=== PATIENT | female | born 1970 | race Caucasian/White ===

== ENCOUNTER → 2016-08-03 | Outpatient (REF) | payer BC ==
[2016-08-03 11:36] LABS: MEAN CORPUSCULAR HEMOGLOBIN 27.3 pg (27.0-33.0); MEAN CORPUSCULAR HGB CONC 34.7 g/dl (32.0-36.5); MEAN CORPUSCULAR VOLUME 78.8 fl (80.0-96.0); RED CELL DISTRIBUTION WIDTH 12.6 % (11.5-14.5); WHITE BLOOD COUNT 6.3 K/mm3 (4.0-10.0)
[2016-08-03 12:05] LABS: ALBUMIN 4.2 GM/DL (3.2-5.2); ALBUMIN/GLOBULIN RATIO 1.08 (1.00-1.93); ALKALINE PHOSPHATASE 69 U/L (45-117); ALT/SGPT 19 U/L (12-78); ANION GAP 8 MEQ/L (8-16); AST/SGOT 12 U/L (15-37); BILIRUBIN,TOTAL 0.4 MG/DL (0.2-1.0); BLOOD UREA NITROGEN 14 MG/DL (7-18); CALCIUM LEVEL 8.9 MG/DL (8.5-10.1); CARBON DIOXIDE LEVEL 26 MEQ/L (21-32); CHLORIDE LEVEL 103 MEQ/L (98-107); CHOLESTEROL LEVEL 224 MG/DL (<200); CREATININE FOR GFR 0.94 MG/DL (0.55-1.02); GLOMERULAR FILTRATION RATE > 60.0 (>58); GLUCOSE, FASTING 126 MG/DL (70-105); POTASSIUM SERUM 4.7 MEQ/L (3.5-5.1); SODIUM LEVEL 137 MEQ/L (136-145); TOTAL PROTEIN 8.1 GM/DL (6.4-8.2); TRIGLYCERIDES LEVEL 196 MG/DL (<150)
== END ==
LOC: M SFHCCLAY 07:35
PROVIDERS: ATTEND Nurse Practitioner Family
DX: I10 Essential (primary) hypertension (principal); E11.9 Type 2 diabetes mellitus without complications; E78.4 Other hyperlipidemia; E55.9 Vitamin D deficiency, unspecified

== ENCOUNTER → 2016-11-23 | Outpatient (REF) | payer BC ==
[2016-11-23 12:12] LABS: ALBUMIN 4.2 GM/DL (3.2-5.2); ALBUMIN/GLOBULIN RATIO 1.24 (1.00-1.93); ALKALINE PHOSPHATASE 58 U/L (45-117); ALT/SGPT 23 U/L (12-78); AST/SGOT 16 U/L (15-37); BILIRUBIN,DIRECT < 0.1 MG/DL (0.0-0.2); BILIRUBIN,TOTAL 0.2 MG/DL (0.2-1.0); CHOLESTEROL LEVEL 177 MG/DL (<200); TOTAL PROTEIN 7.6 GM/DL (6.4-8.2); TRIGLYCERIDES LEVEL 120 MG/DL (<150)
== END ==
LOC: M SFHCCLAY 07:21
PROVIDERS: ATTEND Nurse Practitioner Family
DX: E11.9 Type 2 diabetes mellitus without complications (principal); E78.4 Other hyperlipidemia; E55.9 Vitamin D deficiency, unspecified

== ENCOUNTER → 2017-04-19 | Outpatient (REF) | payer BC | LOC: M SFHCCLAY 07:18 | PROVIDERS: ATTEND Nurse Practitioner Family | DX: E11.9 Type 2 diabetes mellitus without complications (principal); E78.4 Other hyperlipidemia; E55.9 Vitamin D deficiency, unspecified ==

== ENCOUNTER → 2017-08-09 | Outpatient (REF) | payer BC ==
[2017-08-09 11:37] LABS: HEMATOCRIT 42.6 % (36.0-47.0); HEMOGLOBIN 13.9 g/dl (12.0-16.0); MEAN CORPUSCULAR HEMOGLOBIN 26.1 pg (27.0-33.0); MEAN CORPUSCULAR HGB CONC 32.6 g/dl (32.0-36.5); MEAN CORPUSCULAR VOLUME 80.1 fl (80.0-96.0); PLATELET COUNT, AUTOMATED 291 10^3/uL (150-450); RED BLOOD COUNT 5.32 10^6/uL (4.00-5.40); RED CELL DISTRIBUTION WIDTH 12.8 % (11.5-14.5); WHITE BLOOD COUNT 6.3 10^3/uL (4.0-10.0)
[2017-08-09 11:56] LABS: ESTIMATED AVERAGE GLUCOSE 154 MG/DL (60-110)
[2017-08-09 12:14] LABS: ALBUMIN 4.4 GM/DL (3.2-5.2); ALBUMIN/GLOBULIN RATIO 1.16 (1.00-1.93); ALKALINE PHOSPHATASE 66 U/L (45-117); ALT/SGPT 26 U/L (12-78); ANION GAP 8 MEQ/L (8-16); AST/SGOT 19 U/L (7-37); BILIRUBIN,TOTAL 0.3 MG/DL (0.2-1.0); BLOOD UREA NITROGEN 15 MG/DL (7-18); CALCIUM LEVEL 9.6 MG/DL (8.5-10.1); CARBON DIOXIDE LEVEL 27 MEQ/L (21-32); CHLORIDE LEVEL 103 MEQ/L (98-107); CHOLESTEROL LEVEL 190 MG/DL (<200); CHOLESTEROL RISK RATIO 4.042 (<5); CREATININE FOR GFR 0.88 MG/DL (0.55-1.30); GLOMERULAR FILTRATION RATE > 60.0 (>58); GLUCOSE, FASTING 163 MG/DL (70-100); HDL CHOLESTEROL 47 MG/DL (>40); LDL CHOLESTEROL 108.2 MG/DL (<100); NON-HDL-C 143 MG/DL; POTASSIUM SERUM 4.8 MEQ/L (3.5-5.1); SODIUM LEVEL 138 MEQ/L (136-145); TOTAL PROTEIN 8.2 GM/DL (6.4-8.2); TRIGLYCERIDES LEVEL 174 MG/DL (<150)
[2017-08-09 12:32] LABS: TOTAL 25(OH) VITAMIN D 21.4 NG/ML (30.0-100.0)
[2017-08-09 12:34] LABS: CREATININE, URINE 30.9 MG/DL; MALB URINE SIEMENS 10.7 MG/L; MAU/CREAT RATIO 34.6 MCG/MG (0.0-30.0); TOTAL PROTEIN,RANDOM URINE < 5.0 MG/DL (0.0-12.0)
== END ==
LOC: M SFHCCLAY 07:14
DX: I10 Essential (primary) hypertension (principal); E11.9 Type 2 diabetes mellitus without complications; E78.4 Other hyperlipidemia; E55.9 Vitamin D deficiency, unspecified

== ENCOUNTER → 2017-08-31 | Outpatient (CLI) | payer OTHER, BC | LOC: M LRY 12:57 | DX: M79.645 Pain in left finger(s) (principal) | CPT/HCPCS: 73130 ==

== ENCOUNTER → 2017-12-14 | Outpatient (REF) | payer BC ==
[2017-12-14 11:48] LABS: TOTAL 25(OH) VITAMIN D 30.6 NG/ML (30.0-100.0)
[2017-12-14 12:06] LABS: ESTIMATED AVERAGE GLUCOSE 177 MG/DL (60-110); HEMOGLOBIN A1c 7.8 %
[2017-12-14 12:07] LABS: CHOLESTEROL LEVEL 177 MG/DL (<200); CHOLESTEROL RISK RATIO 4.214 (<5); HDL CHOLESTEROL 42 MG/DL (>40); LDL CHOLESTEROL 105.2 MG/DL (<100); NON-HDL-C 135 MG/DL; TRIGLYCERIDES LEVEL 149 MG/DL (<150)
== END ==
LOC: M SFHCCLAY 07:28
DX: E11.9 Type 2 diabetes mellitus without complications (principal); E78.4 Other hyperlipidemia; E55.9 Vitamin D deficiency, unspecified
CPT/HCPCS: 83036

== ENCOUNTER → 2018-02-14 | Outpatient (REF) | payer BC | LOC: M SFHCCLAY 11:30 | DX: N81.2 Incomplete uterovaginal prolapse (principal) | CPT/HCPCS: 87252 ==

== ENCOUNTER → 2018-04-06 | Outpatient (REF) | payer BC ==
[2018-04-06 12:17] LABS: ALBUMIN 4.1 GM/DL (3.2-5.2); ALBUMIN/GLOBULIN RATIO 1.14 (1.00-1.93); ALKALINE PHOSPHATASE 63 U/L (45-117); ALT/SGPT 23 U/L (12-78); AST/SGOT 14 U/L (7-37); BILIRUBIN,DIRECT < 0.1 MG/DL (0.0-0.2); BILIRUBIN,TOTAL 0.3 MG/DL (0.2-1.0); CHOLESTEROL LEVEL 192 MG/DL (<200); CHOLESTEROL RISK RATIO 5.052 (<5); HDL CHOLESTEROL 38 MG/DL (>40); LDL CHOLESTEROL 103 MG/DL (<100); NON-HDL-C 154 MG/DL; TOTAL PROTEIN 7.7 GM/DL (6.4-8.2); TRIGLYCERIDES LEVEL 257 MG/DL (<150)
[2018-04-06 12:37] LABS: CREATININE, URINE 44.5 MG/DL
[2018-04-06 12:48] LABS: ESTIMATED AVERAGE GLUCOSE 166 MG/DL (60-110); HEMOGLOBIN A1c 7.4 %; MAU/CREAT RATIO 15.7 MCG/MG (0.0-30.0)
[2018-04-06 18:12] LABS: TOTAL 25(OH) VITAMIN D 42.5 NG/ML (30.0-100.0)
== END ==
LOC: M SFHCCLAY 07:24
DX: E11.9 Type 2 diabetes mellitus without complications (principal); E78.4 Other hyperlipidemia; B35.1 Tinea unguium; E55.9 Vitamin D deficiency, unspecified
CPT/HCPCS: 80076

== ENCOUNTER → 2018-08-01 | Outpatient (CLI) | payer BC ==
[~2018-08-01] MED LIST: AMLO5TAB6 PO; CRAN400C PO; CRES20TA PO; LISI40TA PO; METF500T13 PO; VITA100067 PO
--- NOTE | 2018-08-01 21:23 | ECGEPIP ---
Stationary ECG Study [facility] Test Date: 2018-08-01 Pat Name: OCTOBER TAMARA Department: Room: - Gender: F Arranging Funeral Director: NATASHA : 1970 Requested By: RADHA Willams Order Number: [id number] Reading MD: Cal Wright Measurements Intervals [place] Rate: 84 P: 69 WI: 158 QRS: 57 QRSD: 93 T: 44 QT: 355 QTc: 420 Interpretive Statements Normal sinus rhythm Left atrial abnormality Otherwise normal Comparison tracing not on file Electronically Signed On 08-01-2018 21:22:38 EST by Cal Wright
== END ==
LOC: M EKG 17:09
PROVIDERS: ATTEND Anesthesiology
DX: Z01.818 Encounter for other preprocedural examination (principal)

== ENCOUNTER 2018-08-04 07:04 | Day surgery (SDC) | payer BC ==
[2018-08-04] VITALS (7 sets, daily range): BP systolic 129–163; BP diastolic 78–97
[~2018-08-04] VITALS: Ht 170.2 cm; Wt 78.8 kg
[~2018-08-04 07:04] MED LIST changes: +LR 1,000 ML IV ONE
[2018-08-04 07:22] LABS: HEMATOCRIT 40.1 % (36.0-47.0); HEMOGLOBIN 13.6 g/dl (12.0-15.5); MEAN CORPUSCULAR HEMOGLOBIN 26.5 pg (27.0-33.0); MEAN CORPUSCULAR HGB CONC 33.9 g/dl (32.0-36.5); MEAN CORPUSCULAR VOLUME 78.2 fl (80.0-96.0); PLATELET COUNT, AUTOMATED 278 10^3/uL (150-450); RED BLOOD COUNT 5.13 10^6/uL (4.00-5.40); WHITE BLOOD COUNT 7.8 10^3/uL (4.0-10.0)
[2018-08-04] MEDS ORDERED: ONDANSETRON 4MG/2ML VIAL (J2405) As Ordered ONE (07:40)
[2018-08-04] MEDS ORDERED: NEOSTIGMINE 10 MG/10 ML VIAL (J2710) As Ordered ONE (07:40)
[2018-08-04] MEDS ORDERED: LIDOCAINE 2% INJ 100 MG/5 ML SDV (FOR ANES.) As Ordered ONE (07:40)
[2018-08-04] MEDS ORDERED: MIDAZOLAM INJ 2 MG/2 ML VIAL (J2250) As Ordered ONE (07:40)
[2018-08-04] MEDS ORDERED: ROCURONIUM BROMIDE 50 MG/5 ML VIAL As Ordered ONE ×2 (07:40→12:01)
[2018-08-04] MEDS ORDERED: dexameTHASONE 4 MG/ML 1ML VIAL (J1100) As Ordered ONE (07:40)
[2018-08-04] MEDS ORDERED: GLYCOPYRROLATE INJ 0.2 MG/ML 2 ML VIAL As Ordered ONE (07:40)
[2018-08-04] MEDS ORDERED: PROPOFOL 200 MG/20 ML VIAL As Ordered ONE ×2 (07:40→10:42)
[2018-08-04] MEDS ORDERED: fentaNYL 100 MCG/2 ML INJECTION (J3010) As Ordered ONE ×2 (07:41→09:04)
[2018-08-04 07:43] LABS: URINE PREG TEST NEGATIVE (NEGATIVE)
[2018-08-04] MEDS ORDERED: VASOPRESSIN INJ 20 UNITS/ML VIAL As Ordered ONE (08:11)
[2018-08-04] MEDS ORDERED: HYDROmorphone HCL 2 MG/ML 1ML VIAL (J1170) As Ordered ONE (09:21)
[2018-08-04] MEDS ORDERED: LABETALOL HCL 100 MG/20 ML VIAL As Ordered ONE (09:24)
[2018-08-04] MEDS ORDERED: PHENYLephrine HCL 500 MCG/5 ML (100MCG/ML) SYRINGE (J2370) As Ordered ONE ×2 (09:49→11:08)
[2018-08-04] MEDS ORDERED: CALCIUM CHLORIDE 10% 1 GM/10 ML SYR As Ordered ONE (11:21)
[2018-08-04] MEDS ORDERED: MORPHINE 1MG/ML IN 0.9% NACL 100ML IV BAG IV PRN (13:15)
[2018-08-04] MEDS ORDERED: EPIDURAL/PCA KEYS XX PRN (13:15)
[2018-08-04] MEDS ORDERED: LR 1,000 ML IV SCH (13:15)
[2018-08-04] MEDS ORDERED: NALOXONE INJ 0.4 MG/1 ML VIAL (J2310) IV PRN (13:15)
[2018-08-04] MEDS ORDERED: ONDANSETRON 4MG/2ML VIAL (J2405) IV PRN ×2 (13:15)
[2018-08-04] MEDS ORDERED: NALBUPHINE HCL 10 MG/ML AMP (J2300) IV PRN (13:15)
[2018-08-04] MEDS ORDERED: diphenhydrAMINE INJ 50MG/ML VIAL (J1200) IV PRN (13:15)
[2018-08-04] MEDS ORDERED: fentaNYL 100 MCG/2 ML INJECTION (J3010) IV PRN (13:15)
[2018-08-04] MEDS ORDERED: PERCOCET 5MG/325MG TAB PO PRN (13:15)
[2018-08-04] MEDS ORDERED: HumaLOG INSULIN (NovoLOG) PER UNIT SC ONE (13:15)
--- NOTE | 2018-08-04 15:11 | RO ---
DATE OF PROCEDURE: 08/04/2018 PREOPERATIVE DIAGNOSES/INDICATION FOR SURGERY: Symptomatic pelvic prolapse and stress urinary incontinence with urethral mobility and failed pessary. POSTOPERATIVE DIAGNOSES: Symptomatic pelvic prolapse and stress urinary incontinence with urethral mobility and failed pessary. PROCEDURE: Total vaginal hysterectomy with bilateral salpingectomy. The patient retains her ovaries at her request. She had a sacrospinous suspension with an anterior and a posterior repair with perineorrhaphy and a mid urethral sling using Desara and cystourethroscopy. SURGEON: Dr. Nely Torres LEAK INSPECTOR: ANESTHESIA: BRIEF DESCRIPTION OF PROCEDURE AND FINDINGS: Elidia was brought to the operating room where sufficient general anesthesia was induced, and she was prepped, draped, and positioned in the usual sterile fashion. We did not bother placing a weighted because the patient has a prolapse of the cervix at the introitus and so on traction under anesthesia it was external. We emptied the bladder but did not place a Zamora because it would of been in the way of our field of work outside the hymenal ring. We then with the single-tooth tenacula on the anterior and posterior aspect of the cervix we made a circumferential incision around the base of the cervix and sharply and bluntly dissected to isolate the cardinal ligaments, which were clamped, transected and ligated, followed by the uterosacral ligaments, which were completely attenuated, but nevertheless were clamped, transected and ligated, and the posterior reflection of the peritoneum was entered. We continued the dissection anteriorly to protect the bladder and then eventually entered anteriorly and carefully and progressively clamped, transected and ligated the uterine vasculature working laterally as typical until the level of the utero-ovarian ligaments were reached and these two were clamped, transected and ligated. The mesentery of the tube was carefully clamped in a progressive fashion on both sides so that the tubes could be delivered intact, still attached to the uterus. The uterus and the tubes removed. We examined those pedicles, which had been clamped with Marie, cut with SuperCut inside, tied with #0 Vicryl, which was used throughout this portion of the case. We had good hemostasis on all the pedicles and again a fairly marked both rectocele and cystocele, but at this point, it was clear there was also a large enterocele. We did a peritoneal enterocele repair, tried to plicate the uterosacral but they were so attenuated that it was really not tremendously effective, but we were able to close the peritoneum and keep the intestines and enterocele from continuing to protrude into our field of space. We then dissected posteriorly out to the sacrospinous ligament and used the Anchorsure anchors, two of them in the sacrospinous ligament. Each of those carried two #2-0 PDS and when these were placed they were tested. There was some good placement. We used Allis clamps to test the location in the vaginal tissues. We dissected away the vaginal tissues posteriorly away from the rectovaginal septum and anteriorly away from the paravesical tissues in order to come down on the apex of the vagina so we could draw up more of the vagina. 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 So, we eased off on some of the length reduction so as to leave enough room for a more aggressive repair closer to the introitus. Nevertheless, we did do an anterior and posterior repair apically and a lot of the rectocele and a lot of the cystocele were corrected with this. We brought the PDS through and through the vaginal tissues. We then closed the vaginal cuff and then brought each of those pedicles on the PDS down a single thrill. We scoped her and confirmed that we did have normal jets of urine from both ureters and there was no evidence of suture or injury to the bladder. We then finished off tying down the sacrospinous suspension and moved onto the posterior repair. It was not sure at this time whether there would be enough length to do more aggressive anterior repair because we had quite a bit from above and some of it spread somewhat laterally so there is a little bit of a blend there into some lateral defect but there is still partial support laterally that I did not want to disrupt, wanted to try utilize. So we removed a triangle of tissue in the perineum, dissected along the posterior vaginal wall exposing the rectovaginal septum. It had several obvious defects and we did a rectal exam to confirm these were in the septum not in the rectum. We re-supported this area with #2-0 Vicryl repairing each of these areas of defect. The highest portion of the vagina closest to the apex there is still a couple weaker spots but we did not want to cause a reduction in caliber such that she would not have good function and this is definitely one of her priorities as was longevity. We also had a separation, almost complete separation of the rectovaginal septum from the perineal body. So we repaired this as well as. We also did a perineorrhaphy with #0 Vicryl re-supporting this area. We then removed some redundant tissue and closed that posterior defect using #2-0 Vicryl and there was still a little bit of a fold at the cystocele anteriorly. So we did approximately 2 cm more of anterior cystocele repair just to bring a pursestring down on that one area and we could tell scoping her that we had repaired the one little defect we saw persistent after the sacrospinous suspension. So having corrected that as well we went ahead and dissected for the Desara midurethral sling starting approximately 1.5 cm cephalad from the meatus at a natural fold of tissue and dissecting out laterally to make sure that we cleared the sulci of the vagina. We then used the trocar to place the Desara midurethral sling, which was brought out suprapubically. So we worked bottom top in a retropubic sling. We then used a #8 Adrienne and red rubber catheter to make sure we did not over correct this and sized the tissues over that, and then removed the sheathing, trimmed off the vaginal tape and then closed the vaginal defect and then closed the suprapubic defect. I placed a Zamora at the end of the case and the procedure was then ended. Estimated blood loss for the procedure about 150 mL. Fluid replacement was crystalloid. Complications none. CONDITION AND DISPOSITION: Elidia tolerated the procedure well and was recovering in the recovery room in good condition.
[2018-08-04] MEDS ORDERED: NORCO, ANEXSIA 5/325MG TABLET (HYDROcodone/ACETAMINOPHEN) PO PRN (18:00)
[2018-08-04] MEDS ORDERED: PROMETHAZINE INJ 25 MG/ML VIAL (J2550) IV ONE (18:00)
[2018-08-04] MEDS: IBUPROFEN 600 MG TAB PO PRN (18:17)
[2018-08-04] MEDS: LR 1,000 ML IV SCH (18:53)
[2018-08-04] MEDS: LISINOPRIL 40 MG TAB PO SCH (19:03)
[2018-08-04] MEDS: amLODIPine 5 MG TAB PO SCH (19:16)
[2018-08-04] MEDS ORDERED: ROSUVASTATIN 10 MG TAB (CRESTOR) PO SCH (21:00)
[2018-08-05] VITALS: BP 132/68
[2018-08-05] MEDS: LR 1,000 ML IV SCH (00:10)
[2018-08-05] MEDS: IBUPROFEN 600 MG TAB PO PRN ×2 (00:10→06:50)
[2018-08-05 04:00] VITALS: BP 113/68
[2018-08-05] MEDS ORDERED: NORCO, ANEXSIA 5/325MG TABLET (HYDROcodone/ACETAMINOPHEN) PO PRN (06:00)
[2018-08-05 06:38] LABS: HEMATOCRIT 33.5 % (36.0-47.0); MEAN CORPUSCULAR HEMOGLOBIN 26.2 pg (27.0-33.0); MEAN CORPUSCULAR HGB CONC 33.7 g/dl (32.0-36.5); MEAN CORPUSCULAR VOLUME 77.7 fl (80.0-96.0); PLATELET COUNT, AUTOMATED 291 10^3/uL (150-450); RED BLOOD COUNT 4.31 10^6/uL (4.00-5.40)
[2018-08-05 06:45] LABS: HEMOGLOBIN 11.3 g/dl (12.0-15.5)
[2018-08-05 08:00] VITALS: BP 110/68
[2018-08-05] MEDS: LISINOPRIL 40 MG TAB PO SCH (08:24)
[2018-08-05 08:25] VITALS: BP 110/65
[2018-08-05] MEDS: amLODIPine 5 MG TAB PO SCH (08:25)
== END 2018-08-05 09:15 | disposition home or self-care (01) ==
LOC: M SDC 07:04 → M PED 14:00 → M SDC 08-05 09:15
PROVIDERS: ATTEND Obstetrics & Gynecology
DX: N81.9 Female genital prolapse, unspecified (principal); N39.3 Stress incontinence (female) (male); N36.41 Hypermobility of urethra; N72 Inflammatory disease of cervix uteri; I10 Essential (primary) hypertension; E78.00 Pure hypercholesterolemia, unspecified; E11.9 Type 2 diabetes mellitus without complications; Z88.6 Allergy status to analgesic agent; Z79.899 Other long term (current) drug therapy; Z79.84 Long term (current) use of oral hypoglycemic drugs; Z87.891 Personal history of nicotine dependence
CPT/HCPCS: 36415; 57260; 57282; 58262; 84703; 85027; 86850; 86900; 86901; 88307; C1713; C1771; J0690; J1100; J1170; J2250; J2370; J2405; J2710; J3010

== ENCOUNTER → 2018-08-17 | Outpatient (REF) | payer BC ==
[~2018-08-17] MED LIST changes: -LR 1,000 ML IV ONE
[2018-08-17 12:02] LABS: HEMATOCRIT 39.2 % (36.0-47.0); HEMOGLOBIN 12.8 g/dl (12.0-15.5); MEAN CORPUSCULAR HGB CONC 32.7 g/dl (32.0-36.5); MEAN CORPUSCULAR VOLUME 79.5 fl (80.0-96.0); PLATELET COUNT, AUTOMATED 317 10^3/uL (150-450); RED BLOOD COUNT 4.93 10^6/uL (4.00-5.40); WHITE BLOOD COUNT 8.7 10^3/uL (4.0-10.0)
[2018-08-17 12:11] LABS: ALBUMIN 4.1 GM/DL (3.2-5.2); ALT/SGPT 28 U/L (12-78); BILIRUBIN,TOTAL 0.3 MG/DL (0.2-1.0); BLOOD UREA NITROGEN 17 MG/DL (7-18); CALCIUM LEVEL 9.3 MG/DL (8.5-10.1); CARBON DIOXIDE LEVEL 28 MEQ/L (21-32); CHLORIDE LEVEL 99 MEQ/L (98-107); CHOLESTEROL LEVEL 212 MG/DL (<200); CHOLESTEROL RISK RATIO 4.711 (<5); CREATININE FOR GFR 0.88 MG/DL (0.55-1.30); GLOMERULAR FILTRATION RATE > 60.0 (>51); GLUCOSE, FASTING 231 MG/DL (70-100); HDL CHOLESTEROL 45 MG/DL (>40); LDL CHOLESTEROL 115 MG/DL (<100); NON-HDL-C 167 MG/DL; POTASSIUM SERUM 4.8 MEQ/L (3.5-5.1); SODIUM LEVEL 134 MEQ/L (136-145); TOTAL PROTEIN 7.8 GM/DL (6.4-8.2); TRIGLYCERIDES LEVEL 259 MG/DL (<150)
[2018-08-17 12:36] LABS: MAU/CREAT RATIO 98.1 MCG/MG (0.0-30.0)
[2018-08-17 12:42] LABS: HEMOGLOBIN A1c 9.5 %
== END ==
LOC: M SFHCCLAY 07:31
PROVIDERS: ATTEND Nurse Practitioner Family
DX: I10 Essential (primary) hypertension (principal); E11.9 Type 2 diabetes mellitus without complications; E78.49 Other hyperlipidemia; E55.9 Vitamin D deficiency, unspecified

== ENCOUNTER → 2018-09-29 | Outpatient (REF) | payer BC ==
[2018-09-29 12:08] LABS: ALT/SGPT 53 U/L (12-78); BILIRUBIN,DIRECT < 0.1 MG/DL (0.0-0.2); BILIRUBIN,TOTAL 0.3 MG/DL (0.2-1.0); CHOLESTEROL LEVEL 148 MG/DL (<200); CHOLESTEROL RISK RATIO 4.352 (<5); HDL CHOLESTEROL 34 MG/DL (>40); LDL CHOLESTEROL 74 MG/DL (<100); NON-HDL-C 114 MG/DL; TOTAL PROTEIN 7.4 GM/DL (6.4-8.2); TRIGLYCERIDES LEVEL 202 MG/DL (<150)
[2018-09-29 12:12] LABS: HEMOGLOBIN A1c 8.7 %
== END ==
LOC: M SFHCCLAY 07:10
PROVIDERS: ATTEND Nurse Practitioner Family
DX: E11.9 Type 2 diabetes mellitus without complications (principal); E78.49 Other hyperlipidemia

== ENCOUNTER → 2018-12-29 | Outpatient (REF) | payer BC ==
[~2018-12-29] MED LIST changes: -CRES20TA PO; +CRES20TA2 PO
[2018-12-29 12:40] LABS: HEMOGLOBIN A1c 9.4 %
[2018-12-29 12:43] LABS: CHOLESTEROL RISK RATIO 6.121 (<5); THYROID STIMULATING HORMONE 1.25 uIU/ML (0.358-3.740); TOTAL 25(OH) VITAMIN D 32.5 NG/ML (30.0-100.0)
== END ==
LOC: M SFHCCLAY 07:06
PROVIDERS: ATTEND Nurse Practitioner Family
DX: E11.9 Type 2 diabetes mellitus without complications (principal); R53.83 Other fatigue; E55.9 Vitamin D deficiency, unspecified

== ENCOUNTER 2019-02-10 17:13 | Emergency (ER) | payer BC ==
[~2019-02-10] VITALS: Ht 167.6 cm; Wt 76.8 kg
[~2019-02-10 17:13] MED LIST changes: -LIPI10TA PO
[2019-02-10] MEDS ORDERED: LIPI10TA PO (17:20)
[2019-02-10] MEDS ORDERED: ADACEL/BOOSTRIX VACCINE (DIPHTH/PERTUSS/ACELL/TETANUS)0.5ML SYR (90715) IM ONE (18:00)
[2019-02-10] MEDS ORDERED: LIDOCAINE 1% MDV 20ML VIAL IM ONE (18:00)
--- NOTE | 2019-02-10 18:39 | REP ---
Clinical: Trauma. Technique: AP, lateral, bilateral oblique views right second digit . Findings: The osseous structures and joint spaces are intact and normal. There is no evidence for acute fracture or dislocation. Surrounding soft tissues are unremarkable. Laceration. No foreign body. Impression: Laceration noted. No foreign body. No acute fracture or dislocation. Electronically Signed by Christiano Polk MD 02/10/2019 06:31 P
[2019-02-10 19:23] VITALS: BP 154/88
== END 2019-02-10 19:41 | disposition home or self-care (01) ==
LOC: M ED 17:13
DX: S61.210A Laceration without foreign body of right index finger without damage to nail, initial encounter (principal); W27.0XXA Contact with workbench tool, initial encounter; Y92.098 Other place in other non-institutional residence as the place of occurrence of the external cause; E11.9 Type 2 diabetes mellitus without complications; I10 Essential (primary) hypertension; Z88.6 Allergy status to analgesic agent; Z79.899 Other long term (current) drug therapy; Z79.84 Long term (current) use of oral hypoglycemic drugs

== ENCOUNTER → 2019-02-10 | Outpatient (REF) | payer BC ==
[~2019-02-10] MED LIST changes: +LIPI10TA PO
[2019-02-10 12:15] LABS: HEMOGLOBIN A1c 8.9 %
== END ==
LOC: M SFHCCLAY 07:04
PROVIDERS: ATTEND Nurse Practitioner Family
DX: E11.9 Type 2 diabetes mellitus without complications (principal)

== ENCOUNTER → 2019-05-18 | Outpatient (REF) | payer BC ==
[~2019-05-18] MED LIST changes: +LIPI10TA PO
[2019-05-18 12:04] LABS: CHOLESTEROL RISK RATIO 5.536 (<5)
[2019-05-18 12:11] LABS: HEMOGLOBIN A1c 7.4 %
[2019-05-18 12:40] LABS: CREATININE, URINE 55.3 MG/DL; MALB URINE SIEMENS 6.2 MG/L; MAU/CREAT RATIO 11.2 MCG/MG (0.0-30.0)
== END ==
LOC: M SFHCCLAY 06:56
PROVIDERS: ATTEND Nurse Practitioner Family
DX: E11.9 Type 2 diabetes mellitus without complications (principal); E78.49 Other hyperlipidemia

== ENCOUNTER → 2019-08-21 | Outpatient (REF) | payer BC ==
[2019-08-21 12:34] LABS: HEMATOCRIT 44.9 % (36.0-47.0); HEMOGLOBIN 14.2 g/dl (12.0-15.5); MEAN CORPUSCULAR HEMOGLOBIN 25.4 pg (27.0-33.0); MEAN CORPUSCULAR HGB CONC 31.6 g/dl (32.0-36.5); MEAN CORPUSCULAR VOLUME 80.5 fl (80.0-96.0); PLATELET COUNT, AUTOMATED 215 10^3/uL (150-450); RED BLOOD COUNT 5.58 10^6/uL (4.00-5.40); WHITE BLOOD COUNT 5.1 10^3/uL (4.0-10.0)
[2019-08-21 12:42] LABS: ALBUMIN 4.1 GM/DL (3.2-5.2); ALT/SGPT 26 U/L (12-78); BILIRUBIN,TOTAL 0.3 MG/DL (0.2-1.0); BLOOD UREA NITROGEN 18 MG/DL (7-18); CALCIUM LEVEL 9.5 MG/DL (8.5-10.1); CARBON DIOXIDE LEVEL 27 MEQ/L (21-32); CHLORIDE LEVEL 101 MEQ/L (98-107); CHOLESTEROL LEVEL 350 MG/DL (<200); CHOLESTEROL RISK RATIO 8.974 (<5); CREATININE FOR GFR 1.01 MG/DL (0.55-1.30); GLOMERULAR FILTRATION RATE > 60.0 (>51); GLUCOSE, FASTING 295 MG/DL (70-100); HDL CHOLESTEROL 39 MG/DL (>40); NON-HDL-C 311 MG/DL; POTASSIUM SERUM 4.9 MEQ/L (3.5-5.1); SODIUM LEVEL 135 MEQ/L (136-145); TOTAL PROTEIN 7.8 GM/DL (6.4-8.2); TRIGLYCERIDES LEVEL 408 MG/DL (<150)
[2019-08-21 12:57] LABS: TOTAL 25(OH) VITAMIN D 37.8 NG/ML (30.0-100.0)
[2019-08-21 13:09] LABS: CREATININE, URINE 45.7 MG/DL; MALB URINE SIEMENS 30.2 MG/L
[2019-08-21 13:22] LABS: HEMOGLOBIN A1c 8.7 %
== END ==
LOC: M SFHCCLAY 07:01
PROVIDERS: ATTEND Nurse Practitioner Family
DX: I10 Essential (primary) hypertension (principal); E11.9 Type 2 diabetes mellitus without complications; E78.5 Hyperlipidemia, unspecified; E55.9 Vitamin D deficiency, unspecified

== ENCOUNTER → 2025-06-20 | Outpatient (CLI) | payer OTHER ==
[~2025-06-20] MED LIST changes: +AMLO1TAB24 PO; -AMLO5TAB6 PO; -CRAN400C PO; +CRANBERRY400 MG PO; -LISI40TA PO; +LISI40TA10 PO
== END ==
LOC: M WHC 09:02
PROVIDERS: ATTEND Physician Assistant Medical
DX: Z12.31 Encounter for screening mammogram for malignant neoplasm of breast (principal); Z53.9 Procedure and treatment not carried out, unspecified reason